=== PATIENT | female | born 2000 | race African-American/Black ===

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

== ENCOUNTER 2020-06-07 23:29 | Emergency (ER) | payer OTHER ==
[2020-06-07 23:57] VITALS: BP 109/74; PULSE 79; TEMP 98.7; BMI 24.1
[2020-06-08] MEDS ORDERED: FAMOTIDINE 20 MG TABLET PO ONE (00:23)
[2020-06-08] MEDS ORDERED: ONDANSETRON *ODT* 4 MG TABLET SL ONE (00:23)
[2020-06-08] MEDS ORDERED: DICYCLOMINE HCL 10 MG/5 ML PO ONE (00:23)
[2020-06-08] MEDS ORDERED: MAG HYDROX/AL HYDROX/SIMETH 30 ML UNIT-DOSE CUP PO ONE (00:24)
[2020-06-08] MEDS ORDERED: ONDANSETRON *ODT* 4 MG TABLET ONE (00:31)
[2020-06-08] MEDS ORDERED: MAG HYDROX/AL HYDROX/SIMETH 30 ML UNIT-DOSE CUP ONE (00:31)
[2020-06-08] MEDS ORDERED: FAMOTIDINE 20 MG TABLET ONE (00:31)
[2020-06-08] MEDS ORDERED: DICYCLOMINE HCL 10 MG CAPSULE ONE (00:31)
[2020-06-08 00:50] LABS: BASO % 0.7 % (0-2.0); EOS % 0.4 % (0-4.5); HEMATOCRIT 41.3 % (32.4-45.2); HEMOGLOBIN 14.2 GM/dL (10.7-15.3); LYMPH % 19.9 % (8-40); MCH 31.5 pg (25.7-33.7); MCHC 34.3 g/dl (32.0-36.0); MEAN CELL VOLUME 91.7 fl (80-96); MONO % 7.8 % (3.8-10.2); NEUT % 71.2 % (42.8-82.8); PLATELET COUNT 206 K/MM3 (134-434); RDW 13.4 % (11.6-15.6)
[2020-06-08 01:10] LABS: POTASSIUM 3.8 mmol/L (3.5-5.1)
[2020-06-08 01:12] LABS: BLOOD UREA NITROGEN 9.8 mg/dL (7-18)
[2020-06-08 01:15] LABS: CREATININE 0.8 mg/dL (0.55-1.3)
[2020-06-08 01:17] LABS: BILIRUBIN,TOTAL 0.3 mg/dL (0.2-1)
[2020-06-08 02:00] LABS: EPI CELLS 15 /uL (0-25.1); HCG,QUALITATIVE URINE Negative; HYALINE CASTS 4 /uL (0-3.1); PH,URINE 5.5 (5.0-8.0); URINE APPEARANCE CLEAR; URINE BACTERIA 80 /uL (0-1359); URINE BILIRUBIN NEGATIVE (NEGATIVE); URINE COLOR YELLOW; URINE GLUCOSE (UA) NEGATIVE (NEGATIVE); URINE KETONE 1+ (NEGATIVE); URINE LEUK ESTERASE NEGATIVE (NEGATIVE); URINE NITRITE NEGATIVE (NEGATIVE); URINE PROTEIN TRACE (NEGATIVE); URINE RBC 75 /uL (0-23.9); URINE UROBILINOGEN 0.2 mg/dL (0.2-1.0); URINE WBC 15 /uL (0-25.8)
== END 2020-06-08 04:46 | disposition home or self-care (01) ==
LOC: JER 23:29
DX: R10.84 Generalized abdominal pain (principal)
CPT/HCPCS: 36415; 80053; 81003; 83690; 84703; 85025; 87086; 99285-25; Q0162

== ENCOUNTER 2020-07-06 09:26 | Emergency (ER) | payer OTHER ==
[2020-07-06 09:37] VITALS: BP 116/71; PULSE 98; TEMP 97.6; BMI 23.3
[2020-07-06] MEDS ORDERED: ACETAMINOPHEN 500 MG TABLET (FP) PO ONE (09:53)
[2020-07-06] MEDS ORDERED: ACETAMINOPHEN 500 MG TABLET (FP) ONE (09:56)
== END 2020-07-06 11:16 | disposition home or self-care (01) ==
LOC: JERFT 09:26
DX: M25.561 Pain in right knee (principal)
CPT/HCPCS: 73562-TC-RT-FY; 99283-25

== ENCOUNTER 2022-09-18 14:37 | Emergency (ER) | payer OTHER ==
[2022-09-18 14:45] VITALS: BP 121/56; PULSE 63; RESP 20; TEMP 98.4; BMI 23.6
[2022-09-18] MEDS ORDERED: ACETAMINOPHEN 1000 MG/100 ML BAG IVPB ONE (15:54)
[2022-09-18] MEDS ORDERED: KETOROLAC TROMETHAMINE 30 MG/1 ML VIAL IVPUSH ONE (15:54)
[2022-09-18] MEDS ORDERED: SODIUM CHLORIDE 0.9% 500 ML INFUS.BAG IV ONE (15:54)
[2022-09-18] MEDS ORDERED: ACETAMINOPHEN INJECTION 100 ML IVPB ONE (15:59)
[2022-09-18] MEDS ORDERED: KETOROLAC TROMETHAMINE 30 MG/1 ML VIAL ONE (15:59)
[2022-09-18 16:52] LABS: BASO % 0.1 % (0-2.0); HEMATOCRIT 43.1 % (32.4-45.2); HEMOGLOBIN 14.5 GM/dL (10.7-15.3); LYMPH % 5.6 % (8-40); MCH 30.9 pg (25.7-33.7); MCHC 33.5 g/dl (32.0-36.0); MEAN CELL VOLUME 92.2 fl (80-96); MONO % 4.8 % (3.8-10.2); NEUT % 89.5 % (42.8-82.8); PLATELET COUNT 229 10^3/uL (134-434); RBC 4.68 M/mm3 (3.60-5.2); WHITE BLOOD COUNT 10.5 K/mm3 (4.0-10.0)
[2022-09-18 16:56] LABS: EPI CELLS 4 /uL (0-25.1); HYALINE CASTS 1 /uL (0-3.1); URINE APPEARANCE CLEAR; URINE BACTERIA 25 /uL (0-1359); URINE BILIRUBIN NEGATIVE (NEGATIVE); URINE COLOR YELLOW; URINE GLUCOSE (UA) NEGATIVE (NEGATIVE); URINE KETONE 2+ (NEGATIVE); URINE LEUK ESTERASE NEGATIVE (NEGATIVE); URINE NITRITE NEGATIVE (NEGATIVE); URINE PROTEIN TRACE (NEGATIVE); URINE RBC 7 /uL (0-23.9); URINE WBC 8 /uL (0-25.8)
[2022-09-18 17:09] LABS: HCG,QUALITATIVE URINE Negative
[2022-09-18 17:19] LABS: CALCIUM 8.9 mg/dL (8.5-10.1)
[2022-09-18 17:20] LABS: ALBUMIN 4.1 g/dl (3.4-5.0); BLOOD UREA NITROGEN 6.7 mg/dL (7-18)
[2022-09-18 17:23] LABS: CREATININE 0.7 mg/dL (0.55-1.3)
[2022-09-18 17:24] LABS: BILIRUBIN,TOTAL 0.5 mg/dL (0.2-1); TOT PROT 6.9 g/dl (6.4-8.2)
== END 2022-09-18 17:44 | disposition home or self-care (01) ==
LOC: JER 14:37
PROC: 3E033NZ Introduction of Analgesics, Hypnotics, Sedatives into Peripheral Vein, Percutaneous Approach (ICD-10-PCS; principal; 2022-09-18)
PROC: 3E0333Z Introduction of Anti-inflammatory into Peripheral Vein, Percutaneous Approach (ICD-10-PCS; 2022-09-18)
DX: N94.6 Dysmenorrhea, unspecified (principal)
CPT/HCPCS: 36415; 80053; 81003; 84703; 85025; 87086; 99284-25

== ENCOUNTER 2022-12-21 23:30 | Emergency (ER) | payer OTHER ==
[2022-12-21 23:58] VITALS: BP 128/85; PULSE 78; RESP 18; TEMP 98.8; BMI 22.1
[2022-12-22] MEDS ORDERED: ONDANSETRON *ODT* 4 MG TABLET SL ONE (00:24)
[2022-12-22] MEDS ORDERED: ONDANSETRON *ODT* 4 MG TABLET ONE (00:32)
[2022-12-22 00:56] LABS: EPI CELLS 22 /uL (0-25.1); HYALINE CASTS 2 /uL (0-3.1); PH,URINE 5.5 (5.0-8.0); URINE APPEARANCE CLEAR; URINE BACTERIA 6 /uL (0-1359); URINE BILIRUBIN NEGATIVE (NEGATIVE); URINE COLOR YELLOW; URINE GLUCOSE (UA) NEGATIVE (NEGATIVE); URINE KETONE TRACE (NEGATIVE); URINE LEUK ESTERASE NEGATIVE (NEGATIVE); URINE NITRITE NEGATIVE (NEGATIVE); URINE PROTEIN 1+ (NEGATIVE); URINE RBC 43 /uL (0-23.9); URINE WBC 13 /uL (0-25.8)
[2022-12-22 00:57] LABS: HCG,QUALITATIVE URINE Negative
[2022-12-22 04:26] LABS: HIV INTERPRETATION NEGATIVE (NEGATIVE)
== END 2022-12-22 01:49 | disposition home or self-care (01) ==
LOC: JER 23:30
DX: Z11.3 Encounter for screening for infections with a predominantly sexual mode of transmission (principal)
CPT/HCPCS: 36415; 81003; 84703; 86780; 87086; 87389; 87491; 87591; 87661; 99283-25; Q0162

== ENCOUNTER 2023-07-03 13:52 | Emergency (ER) | payer OTHER ==
[2023-07-03 14:02] VITALS: BP 113/64; PULSE 70; RESP 18; TEMP 98.4; BMI 22.3
[2023-07-03] MEDS ORDERED: SODIUM CHLORIDE 0.9% 500 ML INFUS.BAG IV ONE (15:40)
[2023-07-03] MEDS ORDERED: ONDANSETRON 4 MG/2 ML VIAL IVPUSH ONE (15:40)
[2023-07-03] MEDS ORDERED: FAMOTIDINE 20 MG/50 ML IVPB 20 MG/50 ML MG IVPB ONE (15:40)
[2023-07-03] MEDS ORDERED: ACETAMINOPHEN 1000 MG/100 ML BAG IVPB ONE (15:40)
[2023-07-03] MEDS ORDERED: ONDANSETRON 4 MG/2 ML VIAL ONE (16:25)
[2023-07-03] MEDS ORDERED: ACETAMINOPHEN INJECTION 100 ML IVPB ONE (16:25)
[2023-07-03] MEDS ORDERED: FAMOTIDINE 10 MG/ML VIAL IVPB ONE (16:26)
[2023-07-03 16:41] LABS: BASO % 0.4 % (0-2.0); EOS % 0.1 % (0-4.5); HEMATOCRIT 42.5 % (32.4-45.2); HEMOGLOBIN 14.3 GM/dL (10.7-15.3); LYMPH % 16.6 % (8-40); MCH 31.9 pg (25.7-33.7); MCHC 33.6 g/dl (32.0-36.0); MEAN CELL VOLUME 95.1 fl (80-96); MEAN PLT VOLUME 7.9 fl (7.5-11.1); MONO % 5.6 % (3.8-10.2); NEUT % 77.3 % (42.8-82.8); PLATELET COUNT 213 10^3/uL (134-434); RBC 4.46 M/mm3 (3.60-5.2); RDW 13.1 % (11.6-15.6); WHITE BLOOD COUNT 9.3 K/mm3 (4.0-10.0)
[2023-07-03 17:00] LABS: POTASSIUM 3.9 mmol/L (3.5-5.1)
[2023-07-03 17:02] LABS: CALCIUM 9.2 mg/dL (8.5-10.1)
[2023-07-03 17:03] LABS: ALBUMIN 3.9 g/dl (3.4-5.0); BLOOD UREA NITROGEN 10.3 mg/dL (7-18); MAGNESIUM 1.9 mg/dL (1.8-2.4)
[2023-07-03 17:05] LABS: CREATININE 0.7 mg/dL (0.55-1.3)
[2023-07-03 17:06] LABS: TOT PROT 6.7 g/dl (6.4-8.2)
[2023-07-03 17:08] LABS: BILIRUBIN,TOTAL 0.4 mg/dL (0.2-1)
== END 2023-07-03 19:25 | disposition home or self-care (01) ==
LOC: JER 13:52
PROC: 3E033GC Introduction of Other Therapeutic Substance into Peripheral Vein, Percutaneous Approach (ICD-10-PCS; principal; 2023-07-03)
PROC: 3E033GC Introduction of Other Therapeutic Substance into Peripheral Vein, Percutaneous Approach (ICD-10-PCS; 2023-07-03)
PROC: 3E033GC Introduction of Other Therapeutic Substance into Peripheral Vein, Percutaneous Approach (ICD-10-PCS; 2023-07-03)
DX: R10.13 Epigastric pain (principal); R11.2 Nausea with vomiting, unspecified; R19.7 Diarrhea, unspecified
CPT/HCPCS: 36415; 80053; 83690; 83735; 84703; 85025; 99284-25